=== PATIENT | female | born 1975 | race Two or more races ===

== ENCOUNTER 2017-09-08 18:50 | Emergency (ER) | payer OTHER ==
[~2017-09-08] VITALS: Ht 167.6 cm; Wt 95.3 kg
[~2017-09-08 18:50] MED LIST: LEVSIN/SL0.125 MG SL
== END 2017-09-08 22:45 | disposition home or self-care (01) ==
LOC: ER 18:50
DX: R10.31 Right lower quadrant pain (principal)

== ENCOUNTER 2018-11-18 14:34 | Emergency (ER) | payer OTHER ==
[~2018-11-18] VITALS: Ht 167.6 cm; Wt 913.5 kg
[2018-11-18] MEDS ORDERED: MICARDIS80 MG (15:22)
== END 2018-11-18 18:08 | disposition home or self-care (01) ==
LOC: ER 14:34
DX: L03.211 Cellulitis of face (principal); H10.11 Acute atopic conjunctivitis, right eye

== ENCOUNTER 2020-04-24 08:58 | Outpatient (CLI) | payer OTHER ==
[~2020-04-24 08:58] MED LIST changes: +MICARDIS80 MG
== END 2020-04-24 09:00 | disposition home or self-care (01) ==
LOC: SONOGRAMA 08:58
PROVIDERS: ATTEND Pathology Anatomic Pathology & Clinical Pathology
DX: E04.2 Nontoxic multinodular goiter (principal)

== ENCOUNTER 2020-04-27 10:25 | Outpatient (CLI) | payer OTHER | END 2020-04-27 11:30 | disposition home or self-care (01) | LOC: OFIC 805 10:25 | PROVIDERS: ATTEND Otolaryngology | DX: E04.1 Nontoxic single thyroid nodule (principal); R09.89 Other specified symptoms and signs involving the circulatory and respiratory systems; R07.0 Pain in throat; K21.9 Gastro-esophageal reflux disease without esophagitis ==

== ENCOUNTER 2021-06-04 11:05 | Outpatient (CLI) | payer OTHER | END 2021-06-04 12:29 | disposition home or self-care (01) | LOC: SONOGRAMA 11:05 | PROVIDERS: ATTEND Pathology Anatomic Pathology & Clinical Pathology | DX: E04.1 Nontoxic single thyroid nodule (principal) ==